=== PATIENT | male | born 1945 | race Caucasian/White ===

== ENCOUNTER 2016-09-19 13:09 | Day surgery (SDC) | payer MEDICARE ==
[~2016-09-19] VITALS: Ht 182.9 cm; Wt 86.5 kg
[~2016-09-19 13:09] MED LIST: ALBU8.5H3 INH; ASPI-496 PO; CEFAZOLIN 1,000 MG ONE; CHOL200024 PO; DEXAMETHASONE 4 MG/ML, 1ML ONE; FINA5TAB4 PO; FLUT1DIS3 INH; MAGN400T7 PO; OMEP-110 PO; ONDANSETRON 2MG/ML, 2ML ONE; PROPOFOL 10 MG/ML, 20ML ONE; VIT1TABL32 PO; VITA1TAB3 PO; VITA400T6 PO
[2016-09-19] MEDS ORDERED: LACTATED RINGERS 1,000 ML IV SCH (13:43)
[2016-09-19 14:30] VITALS: BP 144/86
[2016-09-19 14:43] LABS: ASPARTATE AMINO TRANSFERASE 13 U/L (15-37); BLOOD UREA NITROGEN 13 mg/dL (7-18)
[2016-09-19] MEDS ORDERED: FENTANYL PF 250 MCG/5ML ONE (14:52)
[2016-09-19] MEDS ORDERED: MIDAZOLAM 1 MG/ML, 2ML ONE (14:52)
[2016-09-19] MEDS ORDERED: BUPIVACAINE/PF-EPI 0.5% 1:200K ONE (15:38)
[2016-09-19] MEDS ORDERED: FENTANYL PF 100 MCG/2ML IV PRN (16:00)
[2016-09-19] MEDS ORDERED: MIDAZOLAM 1 MG/ML, 2ML IV PRN (16:00)
[2016-09-19] MEDS ORDERED: hydrALAzine 20 MG/ML, 1ML IV PRN (16:00)
[2016-09-19] MEDS ORDERED: ACETAMINOPHEN 325 MG TABLET PO PRN (16:00)
[2016-09-19] MEDS ORDERED: ONDANSETRON 2MG/ML, 2ML IVPush PRN (16:00)
[2016-09-19] MEDS ORDERED: MEPERIDINE/PF 25MG/0.5ML IVPush PRN (16:00)
[2016-09-19] MEDS ORDERED: PROMETHAZINE 25 MG/ML, 1ML IV PRN (16:00)
[2016-09-19] MEDS ORDERED: LABETALOL 5MG/ML, 20ML IV PRN (16:00)
[2016-09-19] MEDS ORDERED: OXYcodone 5 MG/5 ML ORAL.SOL UDC PO PRN (16:00)
[2016-09-19] MEDS ORDERED: ALBUTEROL/IPRATROPIUM 2.5MG/0.5MG, 3 ML NPPB PRN (16:00)
[2016-09-19] MEDS ORDERED: HYDROmorphone 1 MG/ML, 1ML IV PRN (16:00)
[2016-09-19] MEDS ORDERED: FENTANYL PF 100 MCG/2ML ONE (16:19)
[2016-09-19] MEDS ORDERED: ACETAMINOPHEN 650 MG/20.3 ML UDC ONE (16:19)
[2016-09-19] MEDS ORDERED: ACETAMINOPHEN 325 MG/10.15 ML UDC ONE (16:19)
[2016-09-19] MEDS ORDERED: OXYcodone 5 MG/5 ML ORAL.SOL UDC ONE (16:19)
[2016-09-19] MEDS ORDERED: METOCLOPRAMIDE 5 MG/ML, 2ML ONE (18:54)
[2016-09-19] MEDS ORDERED: METOCLOPRAMIDE 5 MG/ML, 2ML IVPush ONE (19:30)
== END 2016-09-19 19:45 | disposition home or self-care (01) ==
LOC: OUT 13:09
PROVIDERS: ATTEND Surgery
DX: K40.91 Unilateral inguinal hernia, without obstruction or gangrene, recurrent (principal); I10 Essential (primary) hypertension; E78.5 Hyperlipidemia, unspecified; J44.9 Chronic obstructive pulmonary disease, unspecified; Z85.01 Personal history of malignant neoplasm of esophagus; Z98.890 Other specified postprocedural states; Z87.891 Personal history of nicotine dependence; Z88.8 Allergy status to other drugs, medicaments and biological substances; Z79.899 Other long term (current) drug therapy
CPT/HCPCS: 36415; 49520; 80053; 82962; 85025; 93005; C1781; J0690; J1100; J2250; J2405; J2704; J2765; J3010; J7120

== ENCOUNTER 2018-08-07 14:10 | Outpatient (CLI) | payer MEDICARE ==
[~2018-08-07 14:10] MED LIST changes: -ALBU8.5H3 INH; +ALBU8.5H8 INH; -CEFAZOLIN 1,000 MG ONE; +CEFD300C37 PO; -DEXAMETHASONE 4 MG/ML, 1ML ONE; +METR500T PO; -ONDANSETRON 2MG/ML, 2ML ONE; -PROPOFOL 10 MG/ML, 20ML ONE
== END 2018-08-07 23:59 | disposition home or self-care (01) ==
LOC: CFH 14:10
PROVIDERS: ATTEND Internal Medicine
DX: R91.8 Other nonspecific abnormal finding of lung field (principal); J43.2 Centrilobular emphysema; J98.11 Atelectasis
CPT/HCPCS: 71250

== ENCOUNTER → 2019-02-01 | Outpatient (CLI) | payer MEDICARE ==
[~2019-02-01] MED LIST changes: -MAGN400T7 PO; +MAGN400T9 PO
== END | disposition home or self-care (01) ==
LOC: CFH 09:40
PROVIDERS: ATTEND Internal Medicine
DX: R91.8 Other nonspecific abnormal finding of lung field (principal); J43.9 Emphysema, unspecified; I10 Essential (primary) hypertension; I25.10 Atherosclerotic heart disease of native coronary artery without angina pectoris; I31.3 Pericardial effusion (noninflammatory); M47.814 Spondylosis without myelopathy or radiculopathy, thoracic region; Z79.899 Other long term (current) drug therapy; Z79.82 Long term (current) use of aspirin
CPT/HCPCS: 71250

== ENCOUNTER → 2020-08-20 | Outpatient (CLI) | payer MEDICARE | END | disposition home or self-care (01) | LOC: CFH 14:18 | PROVIDERS: ATTEND Internal Medicine | DX: J43.9 Emphysema, unspecified (principal); K44.9 Diaphragmatic hernia without obstruction or gangrene; J98.11 Atelectasis; R91.1 Solitary pulmonary nodule; J98.4 Other disorders of lung | CPT/HCPCS: 71250 ==